=== PATIENT | female | born 1985 | race Caucasian/White ===

== ENCOUNTER 2024-11-19 09:25 | Outpatient (CLI) | payer BC ==
[~2024-11-19 09:25] MED LIST: NITR100C6 PO; PHEN-716 PO
[2024-11-19 10:00] LABS: MEAN PLATELET VOLUME 7.3 FL (7.4-10.4); RED CELL DISTRIBUTION WIDTH 13.9 % (11.5-14.5)
[2024-11-19 10:08] LABS: % IRON SATURATION 11 % (11-46)
[2024-11-19 10:19] LABS: CHOL/HDL RATIO 4.1 (0.00-4.99); CREATININE 0.82 MG/DL (0.40-0.90); LDL CHOLESTEROL 134 MG/DL (50-100); TOTAL CARBON DIOXIDE 28.3 MMOL/L (24-32); eGFR 77 ML/MIN
--- NOTE | 2024-11-19 13:25 | RADIOLOGY REPORT ---
[facility] EXAMINATION: MR MRI HEAD INDICATION: CHRONIC MIGRAINE W/O AURA, NOT INTRACTABLE, W/O STAT MIGR COMPARISON: None TECHNIQUE: Multiplanar, multisequence magnetic resonance imaging of the brain was performed without the use of i ntravenous contrast. FINDINGS: No evidence of acute or remote infarct. No intracranial hemorrhage. No mass effect. There is periventricular/deep white matter T2/FLAIR hyperintensity is nonspecific, but most commonly associated with chronic microvascular disease. The ventricles and sulci are normal in size for age. Clear basal cisterns. Flow voids in the major intracranial vessels are maintained. No abnormality of the orbits. Paranasal sinuses and mastoid air cells are clear. No abnormality of the visualized osseous structures and extracranial soft tissues. IMPRESSION: No acute infarct, intracranial hemorrhage, mass effect, or hydrocephalus.
== END 2024-11-19 23:59 | disposition home or self-care (01) ==
LOC: MRI 09:25
PROVIDERS: ATTEND Nurse Practitioner Family
DX: G43.709 Chronic migraine without aura, not intractable, without status migrainosus (principal); Z86.2 Personal history of diseases of the blood and blood-forming organs and certain disorders involving the immune mechanism
CPT/HCPCS: 36415; 70551; 80053; 80061; 82607; 82728; 82746; 83540; 83550; 85025

== ENCOUNTER 2025-01-05 10:18 | Emergency (ER) | payer BC ==
[~2025-01-05] VITALS: Ht 177.8 cm; Wt 98.5 kg
[2025-01-05 10:22] VITALS: BP 125/77; PULSE 87; RESP 18; TEMP 98.1; O2SAT 100
[2025-01-05 10:35] LABS: LEUKOCYTE ESTERASE ,URINE SMALL (Neg); NITRITES, URINE NEGATIVE (Neg); OCCULT BLOOD,URINE SMALL (Neg); UA COLLECTION TYPE CLN CATCH MIDSTREAM
[2025-01-05 10:36] LABS: MUCUS STRANDS NONE SEEN /LPF (Neg); SQUAMOUS EPITHELIAL CELL,UR FEW /LPF (FEW)
[2025-01-05] MEDS: phenazopyridine 100mg tablet PO ONE (11:07)
[2025-01-05] MEDS: nitrofuran monohydrate/nitrofuran macrocrysal 100 MG (MacroBID) capsule PO ONE (11:07)
[2025-01-05] MEDS ORDERED: NITR100C PO (11:11)
[2025-01-05] MEDS ORDERED: DIF150T PO (11:11)
--- NOTE | 2025-01-05 11:11 | Physician Documentation ---
History of Present Illness ~ Chief Complaint: Urinary Symptoms Stated Complaint: UTI Time Seen by MD: 10:50 HPI 39-year-old female with recurrent UTIs presents requesting evaluation of her urine. Denies any fevers reports urinary frequency and burning Day of Onset: Jan 05, 2025 Medication Reconciliation Allergies: Coded Allergies: No Known Allergies (Unverified , 03/11/24) Scheduled Fluconazole* (Diflucan*), 1 TAB PO ONCE Nitrofurantoin Macrocrystal (Nitrofurantoin), 1 CAP PO Q12H Nitrofurantoin Monohyd/M-Cryst (Macrobid 100 mg Capsule), 1 CAP PO Q12H Nitrofurantoin Monohyd/M-Cryst (Macrobid 100 mg Capsule), 1 CAP PO Q12H Phenazopyridine HCl (Pyridium), 1 TAB PO Q8H Review of Systems All Other Systems at this time: Reviewed and Negative ROS As stated above in the HPI, otherwise all systems are reviewed and negative. Physical Exam Vital Signs: Temperature: 98.1, Source: Temporal, Heart Rate: 87, Respiratory Rate: 18, BP: 125/77, Pulse Oximetry: 100, Weight: 98.500 Physical Exam General: Alert, no apparent distress. HEENT: PERRL, EOMI, no injection, moist mucous membranes. Neck: Full range of motion. Respiratory: Lungs clear, no respiratory distress. Chest: No accessory muscle use. Cardiovascular: Regular rate and rhythm, no murmurs. Gastrointestinal: Soft, nontender, nondistended. Bowels sounds present. Extremities: Normal range of motion, no deformity. Neurologic: Oriented x4. Psychiatric: Normal mood and affect. Skin: Normal color, warm and dry. No edema, no ecchymosis. Progress Results/Orders Results/Orders Orders - HILL ZAYAS [employer] COU[employer]ER Cult Urine + [address] (01/05/25 10:37) Completed Orders - HILL ZAYAS [facility]ER Ua W/Microscopic, Cult If Ind (01/05/25 10:00) Nitrofur [place]/Nitrofuran Macr (Macrobid (01/05/25 11:00) Phenazopyridine Tablet (Pyridium Tablet) (01/05/25 11:00) Medications Received in ER Medications (Trade) Dose Ordered Sig/Mihir Route PRN Reason Start Time Stop Time Status Last Admin Dose Admin (MacroBID capsule) 100 mg ONCE ONCE PO 01/05/25 11:00 01/05/25 11:01 DC 01/05/25 11:07 100 MG Vital Signs 01/05/25 10:22 Temp 98.1 Pulse 87 Resp 18 B/P (MAP) 125/77 Pulse Ox 100 Laboratory Tests Test 01/05/25 10:00 Urine Specimen Description Cln catch midstream Urine Color Straw Urine Clarity Clear Urine pH 6.5 Urine Specific [place] <=1.005 Urine Protein Negative Urine Glucose (UA) Negative Urine Ketones Negative Urine Occult Blood Small Urine Nitrite Negative Urine Bilirubin Negative Urine Urobilinogen 0.2 Urine Leukocyte Esterase Small H Urine RBC 3-10 Urine WBC 10-20 H Urine Squamous Epithelial Cells Few Urine Bacteria Few Urine Mucus None seen Urine Culture Indicated Indicated Volume Urine Centrifuged 10 ml Urine Comment Microbiology Date/Time Source Procedure Growth Status 01/05/25 10:37 Urine Clean Catch Midstream Urine Culture - Preliminary Culture received. Resulted Medical Decision Making Additional info obtained from: other Findings Patient's urinalysis did not show sign of bacteria however based on patient's complaint and her medical history I am going to empirically treat her for UTI. Urinary Diff Dx:Considerations: Include: AAA, , Aortic dissection, Appendicitis, Bowel obstruction, Cholelithiasis, Choleangitis, DJD, Ectopic , Hepatitis, HNP, Impaction, Intrauterine , Musculoskeletal pain, Ovarian torsion, Pancreatitis, PID, Post-Op complication, Pyelonephritis, Renal failure, Strain, Urinary Obstruction, Urolithiasis, Urinary retention, UTI, Vaginitis, Other Genital Diff Dx:Considerations: Unlikely: -Complete, - Incomplete, -Inevitable, Ablortion-Missed, -Threatened, Abruptio placentae, Bartholin abscess, Bartholin cyst, Blood loss anemia, Constipation, Cervicitis, Dsymenorrhea, Ectopic , Foreign body, Hormonal, Hidradenitis suppurativa, Intrauterine , Menorrhagia, Menometrorrhagia, Menstrual bleeding, Myomatous uterus, Perianal abscess, Physiologic discharge, Pinworms, PID, Placenta previa, , Precipitous Hct, Trauma, UTI, Vaginitis(osis)-Atrophic, Vaginitis, Vaginitis(osis)-Bacterial, Vaginitis(osis)- Candidal, Vaginitis(osis)-Contact, Vaginitis(osis)-Herpes, Vaginitis(osis)- Trich., Other Departure Disposition: HOME / SELF CARE / HOMELESS Impression: Primary Impression: Acute urinary tract infection Discharge Instructions: Urinary Tract Infection, Adult Referrals: NO PRIMARY CARE PROVIDER (PCP) Prescriptions Fluconazole* (Diflucan*) 150 Mg Tablet 1 TAB PO ONCE for 1 Day, #1 TAB Prov: HILL ZAYAS NP 01/05/25 Nitrofurantoin Macrocrystal (Nitrofurantoin) 100 Mg Capsule 1 CAP PO Q12H for 7 Days, #14 CAP 0 Refills Prov: HILL ZAYAS NP 01/05/25 Education Educated: Patient Educated regarding: diagnosis Signature Scribe Signature: n Attestation: 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 01/05/25 11:11 HILL ZAYAS NP Jan 05, 2025 11:11
== END 2025-01-05 11:33 | disposition home or self-care (01) ==
LOC: ER 10:19
DX: N39.0 Urinary tract infection, site not specified (principal); Z87.440 Personal history of urinary (tract) infections; Z79.899 Other long term (current) drug therapy
CPT/HCPCS: 81001; 87088; 99283

== ENCOUNTER 2025-01-23 11:25 | Day surgery (SDC) | payer BC ==
[~2025-01-23] VITALS: Ht 177.8 cm; Wt 99.5 kg
[~2025-01-23 11:25] MED LIST changes: +NITR100C PO; +iron sucrose complex (VENOFER) 200 MG in NS 100ml IV IV SCH
[2025-01-23 11:50] VITALS: BP 119/74; PULSE 83; RESP 16; O2SAT 96
[2025-01-23] MEDS: iron sucrose complex (VENOFER) 200 MG in NS 100ml IV IV SCH (11:54)
[2025-01-23] MEDS ORDERED: LEVO1TBD8 PO (12:10)
[2025-01-23] MEDS ORDERED: ZALE10CA PO (12:10)
[2025-01-23] MEDS ORDERED: SUMA50TA17 PO (12:10)
[2025-01-23] MEDS ORDERED: FLUO40CA PO (12:10)
[2025-01-23] MEDS ORDERED: BUTA1TAB48 PO (12:10)
[2025-01-23] MEDS ORDERED: FAMO40TA86 PO (12:10)
[2025-01-23] MEDS ORDERED: METH10CP PO (12:10)
[2025-01-23] MEDS ORDERED: ELET20TA2 PO (12:10)
[2025-01-23] MEDS ORDERED: DIAZ5TAB5 PO (12:10)
[2025-01-23] MEDS ORDERED: UBRO50TA PO (12:10)
[2025-01-23 12:12] VITALS: BP 119/74; PULSE 83; RESP 16; TEMP 98.3; O2SAT 96
[2025-01-23 12:18] VITALS: RESP 16; O2SAT 96
[2025-01-23 12:43] VITALS: BP 113/73; PULSE 90; RESP 16; O2SAT 98
== END 2025-01-23 12:45 | disposition home or self-care (01) ==
LOC: SSTAY O 11:25
PROVIDERS: ATTEND Nurse Practitioner Family
DX: D50.9 Iron deficiency anemia, unspecified (principal); Z79.899 Other long term (current) drug therapy; Z87.440 Personal history of urinary (tract) infections
CPT/HCPCS: 96365; J1756

== ENCOUNTER 2025-02-09 07:50 | Day surgery (SDC) | payer BC ==
[~2025-02-09] VITALS: Ht 177.8 cm; Wt 100.0 kg
[~2025-02-09 07:50] MED LIST changes: +BUTA1TAB48 PO; +DIAZ5TAB5 PO; +ELET20TA2 PO; +FAMO40TA86 PO; +FLUO40CA PO; +LEVO1TBD8 PO; +METH10CP PO; -NITR100C PO; -NITR100C6 PO; -PHEN-716 PO; +SUMA50TA17 PO; +UBRO50TA PO; +ZALE10CA PO; -iron sucrose complex (VENOFER) 200 MG in NS 100ml IV IV SCH
[2025-02-09 08:02] VITALS: BP 131/87; PULSE 72; RESP 12; TEMP 98.2; O2SAT 99
[2025-02-09] MEDS: iron sucrose complex (VENOFER) 200 MG in NS 100ml IV IV SCH (09:02)
[2025-02-09 10:15] VITALS: BP 121/82; PULSE 78; RESP 14; O2SAT 99
== END 2025-02-09 10:30 | disposition short-term general hospital (02) ==
LOC: SSTAY O 07:50
PROVIDERS: ATTEND Nurse Practitioner Family
DX: D50.9 Iron deficiency anemia, unspecified (principal); Z79.899 Other long term (current) drug therapy
CPT/HCPCS: 96365; J1756

== ENCOUNTER 2025-02-23 07:17 | Day surgery (SDC) | payer BC ==
[~2025-02-23] VITALS: Ht 177.8 cm; Wt 100.6 kg
[2025-02-23 08:45] VITALS: BP 133/55; PULSE 82; RESP 16; TEMP 99.1; O2SAT 99
[2025-02-23] MEDS: iron sucrose complex (VENOFER) 200 MG in NS 100ml IV IV ONE (08:54)
[2025-02-23 09:40] VITALS: BP 126/79; PULSE 81; RESP 15; O2SAT 99
[2025-02-23 09:50] VITALS: BP 126/79; PULSE 81; RESP 16; O2SAT 99
== END 2025-02-23 09:55 | disposition home or self-care (01) ==
LOC: SSTAY O 07:17
PROVIDERS: ATTEND Nurse Practitioner Family
DX: D50.9 Iron deficiency anemia, unspecified (principal); Z79.899 Other long term (current) drug therapy
CPT/HCPCS: 96365; J1756